=== PATIENT | male | born 1995 | race Caucasian/White ===

== ENCOUNTER 2018-04-06 00:23 | Emergency (ER) | payer OTHER ==
[2018-04-06] MEDS ORDERED: Ondansetron ODT TAB* 4 MG PO ONE (01:08)
--- NOTE | 2018-04-06 01:16 | ED ---
Head Injury - HPI Summary HPI Summary: 22 year old male presents with head injury today. He states that he was hit playing tag and then knocked his glasses off. He is not sure where he was hit. He states he is having amnesia to event. He states he was fine immediately and 30 minutes afterwards he developed nausea and vomiting. He has history of migraines denies any history of head injuries. No neck pain. He admits to dizziness. Headache is mild. States it is a diffuse headache. No other injury. had two episodes of vomiting in ED. - History Of Current Complaint Chief Complaint: EDHeadInjury Stated Complaint: HEAD INJURY/PAIN Time Seen by Provider: 04/06/18 01:08 Pain Intensity: 2 - Allergies/Home Medications Allergies/Adverse Reactions: Allergies Allergy/AdvReac Type Severity Reaction Status Date / Time No Known Allergies Allergy Verified 04/06/18 00:27 PMH/Surg Hx/FS Hx/Imm Hx Endocrine/Hematology History: Denies: Hx Anticoagulant Therapy Neurological History: Reports: Hx Migraine Infectious Disease History: No Infectious Disease History: Denies: Traveled Outside the [place] in Last 30 Days - Family History Known Family History: Negative: Seizure Disorder - Social History Substance Use Type: Reports: None Review of Systems Negative: Fever Negative: Chest Pain Negative: Shortness Of Breath Positive: Vomiting Positive: Headache All Other Systems Reviewed And Are Negative: Yes Physical Exam Triage Information Reviewed: Yes Vital Signs On Initial Exam: Initial Vitals Temp Pulse Resp BP Pulse Ox 98.2 F 80 20 122/69 95 04/06/18 00:24 04/06/18 00:24 04/06/18 00:24 04/06/18 00:24 04/06/18 00:24 Vital Signs Reviewed: Yes Appearance: Positive: Well-Appearing Skin: Positive: Warm, Dry Head/Face: Positive: Normal Head/Face Inspection, Other - no step off, racoon eyes, norton sign Eyes: Positive: Normal, EOMI, ISHA, Conjunctiva Clear ENT: Positive: Pharynx normal Respiratory/Lung Sounds: Positive: Clear to Auscultation, Breath Sounds Present Cardiovascular: Positive: Normal, RRR Musculoskeletal: Positive: Other - nontender neck Neurological: Positive: Sensory/Motor Intact, Alert, Oriented to Person Place, Time, CN Intact II-III Psychiatric: Positive: Normal - [place] Coma Scale Best Eye Response: 4 - Spontaneous Best Motor Response: 6 - Obeys Commands Best Verbal Response: 5 - Oriented Coma Scale Total: 15 Diagnostics - Vital Signs Vital Signs Temp Pulse Resp BP Pulse Ox 04/06/18 00:24 98.2 F 80 20 122/69 95 - Laboratory Lab Statement: Any lab studies that have been ordered have been reviewed, and results considered in the medical decision making process. - CT brain CT Interpretation: No Acute Changes CT Interpretation Completed By: Radiologist Head Injury Course/Dx Course Of Treatment: 22 year old male presents with head injury today. He states that he was hit playing tag and then knocked his glasses off. He is not sure where he was hit. He states he is having amnesia to event. He states he was fine immediately and 30 minutes afterwards he developed nausea and vomiting. He has history of migraines denies any history of head injuries. No neck pain. He admits to dizziness. Headache is mild. States it is a diffuse headache. No other injury. On exam normal neuro exam. Patient had amnesia during the conversation was restating previously stated information. With the vomiting and the amnesia got a CT. CT brain normal. Gave Zofran for nausea and gave him concussion precautions. Patient understands and agrees with plan. - Diagnoses Differential Diagnosis/HQI/PQRI: Concussion Without LOC, Contusion, Intracranial Bleed Provider Diagnoses: Head injury Discharge - Sign-Out/Discharge Documenting (check all that apply): Patient Departure - Discharge Plan Condition: Good Disposition: HOME Prescriptions: Ondansetron ODT TAB* [Zofran 4 MG Odt TAB*] 4 mg PO Q6H PRN #8 tab.odt PRN Reason: Nausea Patient Education Materials: Concussion (ED) Referrals: No Primary Care Phys,NOPCP [Primary Care Provider] - Additional Instructions: Take Tylenol or ibuprofen for headache every 6 hours take zofran every 6 hours as needed for nausea Modify activities as tolerated Follow up with [facility] within 5 days Return to ED if develop any new or worsening symptoms - Billing Disposition and Condition Condition: GOOD Disposition: Home
--- NOTE | 2018-04-06 02:17 | RAD ---
EXAM: CT Head Without Intravenous Contrast CLINICAL HISTORY: 22 years old, male; Injury or trauma; Fall; Additional info: Head injury, vomiting TECHNIQUE: Axial computed tomography images of the head/brain without intravenous contrast. All CT scans at this facility use at least one of these dose optimization techniques: automated exposure control; mA and/or kV adjustment per patient size (includes targeted exams where dose is matched to clinical indication); or iterative reconstruction. COMPARISON: No relevant prior studies available. FINDINGS: Brain: Unremarkable. No hemorrhage. No significant white matter disease. No edema. Ventricles: Unremarkable. No ventriculomegaly. Bones/joints: Unremarkable. No acute fracture. Soft tissues: Unremarkable. Sinuses: Unremarkable as visualized. No acute sinusitis. Mastoid air cells: Unremarkable as visualized. No mastoid effusion. IMPRESSION: No acute findings. To contact [facility] with a general question: [facility] - [phone] For direct physician to physician contact: Physician Hotline - [phone] [facility] ([facility] Facility ID #[id number])
[2018-04-06 02:48] VITALS: BP 118/75
== END 2018-04-06 02:47 | disposition home or self-care (01) ==
LOC: ED 00:23
DX: S09.90XA Unspecified injury of head, initial encounter (principal); W50.0XXA Accidental hit or strike by another person, initial encounter; Y93.69 Activity, other involving other sports and athletics played as a team or group; Y92.9 Unspecified place or not applicable
CPT/HCPCS: 70450; 99282; A9270-GY

== ENCOUNTER 2018-10-28 19:42 | Emergency (ER) | payer BC, OTHER ==
--- NOTE | 2018-10-28 21:19 | ED ---
Upper Extremity Pain - HPI Summary HPI Summary: Patient complains of ring stuck on the fourth digit of left hand 4 hours with this swelling of same digit. Denies trauma, loss of sensation or function distally. - History of Current Complaint Chief Complaint: EDExtremityUpper Stated Complaint: RING STUCK ON FINGER/FINGER SWOLLEN 2HR + PER PT Time Seen by Provider: 10/28/18 20:35 Hx Obtained From: Patient Mechanism Of Injury: Unknown Onset/Duration: Started Hours Ago Timing: Constant Severity Initially: Moderate Severity Currently: Moderate Pain Location: Finger Character: Throbbing Aggravating Factor(s): Nothing Alleviating Factor(s): Nothing Associated Signs & Symptoms: Positive: Swelling - Allergies/Home Medications Allergies/Adverse Reactions: Allergies Allergy/AdvReac Type Severity Reaction Status Date / Time No Known Allergies Allergy Verified 04/06/18 00:27 PMH/Surg Hx/FS Hx/Imm Hx Endocrine/Hematology History: Denies: Hx Anticoagulant Therapy Cardiovascular History: Denies: Hx Pacemaker/ICD History: Denies: Hx Dialysis Sensory History: Denies: Hx Eye Prosthesis Opthamlomology History: Denies: Hx Legally Blind EENT History: Denies: Hx Deafness Neurological History: Reports: Hx Migraine Infectious Disease History: No Infectious Disease History: Denies: Traveled Outside the [place] in Last 30 Days - Family History Known Family History: Negative: Seizure Disorder - Social History Alcohol Use: Occasionally Substance Use Type: Reports: None Smoking Status (MU): Never Smoked Tobacco Review of Systems Constitutional: Negative Eyes: Negative ENT: Negative Cardiovascular: Negative Respiratory: Negative Gastrointestinal: Negative Genitourinary: Negative Skin: Other Neurological: Negative Psychological: Normal All Other Systems Reviewed And Are Negative: Yes Physical Exam - Summary Physical Exam Summary: PMS intact distally. Positive for swelling and erythema. Normal. PMS intact distally after removal. Triage Information Reviewed: Yes Vital Signs On Initial Exam: Initial Vitals Temp Pulse Resp BP Pulse Ox 98.0 F 77 18 161/52 99 10/28/18 19:48 10/28/18 19:48 10/28/18 19:48 10/28/18 19:48 10/28/18 19:48 Vital Signs Reviewed: Yes Appearance: Positive: Well-Appearing Skin: Positive: Warm Head/Face: Positive: Normal Head/Face Inspection Eyes: Positive: Normal ENT: Positive: Normal ENT inspection Neck: Positive: Supple Respiratory/Lung Sounds: Positive: Clear to Auscultation Cardiovascular: Positive: Normal Abdomen Description: Positive: Nontender Musculoskeletal: Positive: Normal Neurological: Positive: Normal Psychiatric: Positive: Normal AVPU Assessment: Alert - [place] Coma Scale Best Eye Response: 4 - Spontaneous Best Motor Response: 6 - Obeys Commands Best Verbal Response: 5 - Oriented Coma Scale Total: 15 Diagnostics - Vital Signs Vital Signs Temp Pulse Resp BP Pulse Ox 10/28/18 19:48 98.0 F 77 18 161/52 99 - Laboratory Lab Statement: Any lab studies that have been ordered have been reviewed, and results considered in the medical decision making process. Course/Dx - Course Course Of Treatment: Patient complains of ring stuck on the fourth digit of left hand 4 hours with this swelling of same digit. Denies trauma, loss of sensation or function distally. Physical exam:PMS intact distally. Positive for swelling and erythema. Normal. PMS intact distally after removal. Ring removed excessively. - Diagnoses Provider Diagnoses: Finger swelling Discharge - Sign-Out/Discharge Documenting (check all that apply): Patient Departure Patient Received Moderate/Deep Sedation with Procedure: No - Discharge Plan Condition: Stable Disposition: HOME Patient Education Materials: Swollen Joint (ED) Referrals: No Primary Care Phys,NOPCP [Primary Care Provider] - Additional Instructions: Ice and elevation will help reduce swelling and finger. Return to the ED for any new or worsening symptoms. - Billing Disposition and Condition Condition: STABLE Disposition: Home
[2018-10-28 21:25] VITALS: BP 133/41
== END 2018-10-28 21:24 | disposition home or self-care (01) ==
LOC: ED 19:42
DX: M79.89 Other specified soft tissue disorders (principal)
CPT/HCPCS: 99282